=== PATIENT | female | born 1955 | race Caucasian/White ===

== ENCOUNTER 2017-05-11 08:38 | Emergency (ER) | payer BC ==
[2017-05-11 09:27] VITALS: BP 136/108
--- NOTE | 2017-05-11 10:35 | UC ---
Eye Complaint HPI - HPI Summary HPI Summary: ONSET OF RIGHT EYE REDNESS, IRRITATION AND CLEAR DRAINAGE LAST NIGHT. 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 HAS HAD SEVERAL WEEKS OF URI SX. NO FEVER. NO VISUAL DISTURBANCE. NO NAUSEA, CHO OR FB SENSATION. NO PHOTOPHOBIA. - History of Current Complaint Chief Complaint: UCRespiratory Stated Complaint: PINK EYE/COLD SYMPTOMS Time Seen by Provider: 05/11/17 10:11 Hx Obtained From: Patient Onset/Duration: Gradual Onset, Lasting Days, Still Present Timing: Constant Severity Initially: Moderate Severity Currently: Moderate Pain Intensity: 0 Pain Scale Used: 0-10 Numeric Location of Injury: Conjunctiva Aggravating Factor(s): Nothing Alleviating Factor(s): Nothing Associated Signs And Symptoms: Positive: Drainage (Clear). Negative: Photophobia, Vision Impairment Bilateral, Vision Impairment Right, Vision Impairment Left, Fever, Swelling - Allergies/Home Medications Allergies/Adverse Reactions: Allergies Allergy/AdvReac Type Severity Reaction Status Date / Time No Known Allergies Allergy Verified 05/11/17 09:21 PMH/Surg Hx/FS Hx/Imm Hx Previously Healthy: Yes - Surgical History Surgical History: Yes Surgery Procedure, Year, and Place: tonsillectomy. R arm surgery/ rotator cuff / collapsed lung - Family History Known Family History: Positive: Cardiac Disease - Social History Alcohol Use: Rare Alcohol Amount: 3-4 PER MONTH Substance Use Type: None Smoking Status (MU): Never Smoked Tobacco Have You Smoked in the Last Year: No - Immunization History Most Recent Influenza Vaccination: not this season Review of Systems Constitutional: Negative Eyes: Drainage, Eye Redness ENT: Nasal Discharge Respiratory: Cough Cardiovascular: Negative Gastrointestinal: Negative All Other Systems Reviewed And Are Negative: Yes Physical Exam Triage Information Reviewed: Yes Appearance: Well-Appearing, No Pain Distress, Well-Nourished Vital Signs: Initial Vital Signs Temp 98.7 F 05/11/17 09:22 Pulse 91 05/11/17 09:22 Resp 16 05/11/17 09:22 BP 136/108 05/11/17 09:22 Pulse Ox 100 05/11/17 09:22 Vital Signs Reviewed: Yes Eyes: Positive: Conjunctiva Inflamed, Other: - PERRL, EOMI. Negative: Discharge ENT: Positive: Hearing grossly normal, Pharynx normal, TMs normal Neck: Positive: Supple, Nontender, No Lymphadenopathy Respiratory Exam: Normal Cardiovascular Exam: Normal Abdomen Description: Positive: Soft Musculoskeletal: Positive: No Edema Neurological: Positive: Alert Psychological: Positive: Age Appropriate Behavior Skin: Negative: rashes Eye Complaint Course/Dx - Differential Dx/Diagnosis Provider Diagnoses: 1. RIGHT EYE CONJUNCTIVITIS. 2. ACUTE URI Discharge - Discharge Plan Condition: Stable Disposition: HOME Prescriptions: Amoxicillin PO (*) [Amoxicillin 500 MG CAP*] 1,000 mg PO Q12H #28 cap Ciprofloxacin 0.3% OPTH.NADIRA* [Cipro 0.3% Opth*] 1 drop RIGHT EYE Q4H #1 btl Patient Education Materials: Upper Respiratory Infection (ED), Conjunctivitis ( ED) Referrals: No Primary Care Phys,NOPCP [Primary Care Provider] - Additional Instructions: CALL THE NUMBER BELOW FOR ASSISTANCE IN ESTABLISHING WITH A PCP An additional resource available to assist in finding the appropriate physician for your health care needs is [facility] ([facility]). You may contact them by calling [phone].
== END 2017-05-11 10:40 | disposition home or self-care (01) ==
LOC: UCCORT 08:38
DX: H10.31 Unspecified acute conjunctivitis, right eye (principal); J06.9 Acute upper respiratory infection, unspecified; Z90.89 Acquired absence of other organs
CPT/HCPCS: 99212; G0463

== ENCOUNTER 2019-04-10 09:26 | Emergency (ER) | payer BC ==
[2019-04-10 09:47] VITALS: BP 155/86
--- NOTE | 2019-04-10 09:57 | UC ---
Eye Complaint HPI - HPI Summary HPI Summary: Patient is a 64-year-old female presenting with left eye irritation and discharge times one day. She also notes a sore under her nose that appeared last night. Denies drainage from the sore but notes crusting. Denies itching of eye or sore. Denies changes in vision and photophobia. Denies contact lens use. Denies URI symptoms. Denies environmental allergies. - History of Current Complaint Chief Complaint: UCEye Stated Complaint: EYE COMPLAINT Hx Obtained From: Patient Onset/Duration: Sudden Onset Pain Intensity: 0 - Allergies/Home Medications Allergies/Adverse Reactions: Allergies Allergy/AdvReac Type Severity Reaction Status Date / Time No Known Allergies Allergy Verified 04/10/19 09:47 PMH/Surg Hx/FS Hx/Imm Hx Previously Healthy: Yes - Surgical History Surgical History: Yes Surgery Procedure, Year, and Place: tonsillectomy. R arm surgery/ rotator cuff / collapsed lung - Family History Known Family History: Positive: Cardiac Disease - Social History Alcohol Use: Rare Alcohol Amount: 3-4 PER MONTH Substance Use Type: None Smoking Status (MU): Never Smoked Tobacco Have You Smoked in the Last Year: No - Immunization History Most Recent Influenza Vaccination: not this season Review of Systems All Other Systems Reviewed And Are Negative: Yes Constitutional: Positive: Negative Skin: Positive: Other - sore under nose Eyes: Positive: Drainage, Eye Redness. Negative: Blurred Vision, Diplopia, Photophobia ENT: Negative: Sore Throat, Ear Ache, Nasal Discharge, Sinus Congestion, Sinus Pain/Tenderness Respiratory: Positive: Negative Cardiovascular: Positive: Negative Gastrointestinal: Positive: Negative Genitourinary: Positive: Negative Neurological: Positive: Negative Physical Exam Triage Information Reviewed: Yes Appearance: Well-Appearing, No Pain Distress, Well-Nourished Vital Signs: Initial Vital Signs Temp 98.4 F 04/10/19 09:45 Pulse 72 04/10/19 09:45 Resp 16 04/10/19 09:45 BP 155/86 04/10/19 09:45 Pulse Ox 100 04/10/19 09:45 Vital Signs Reviewed: Yes Eyes: Positive: Conjunctiva Inflamed, Discharge - Crusting noted of upper eyelid of the left eye. ENT Exam: Normal ENT: Positive: Hearing grossly normal, Pharynx normal, TMs normal, Uvula midline. Negative: Nasal congestion, Nasal drainage, TM bulging, TM dull, TM red Neck exam: Normal Neck: Positive: Supple Respiratory Exam: Normal Respiratory: Positive: Lungs clear, Normal breath sounds, No respiratory distress Cardiovascular Exam: Normal Cardiovascular: Positive: RRR Neurological: Positive: Alert Psychological: Positive: Age Appropriate Behavior Skin: Positive: Other - Small honey crusted lesion noted beneath right nare Eye Complaint Course/Dx - Course Course Of Treatment: Instructed the patient to use antibiotic eyedrops and ointment for the treatment of her bacterial conjunctivitis and impetigo. Instructed the patient follow up with her PCP or the [facility] if symptoms persist. Patient voiced understanding and agreed to treatment plan. - Differential Dx/Diagnosis Provider Diagnosis: Bacterial conjunctivitis of both eyes, Impetigo Discharge ED - Sign-Out/Discharge Documenting (check all that apply): Patient Departure All imaging exams completed and their final reports reviewed: No Studies - Discharge Plan Condition: Stable Disposition: HOME Prescriptions: Mupirocin 2% OINT* [Bactroban 2 % Oint*] 1 applic TOPICAL BID 7 Days #1 tube Polymyx/Trimethoprim OPTH* [Polytrim OPHTH*] 1 drop BOTH EYES Q8H #1 btl Patient Education Materials: Impetigo (ED), Conjunctivitis (ED) Referrals: [facility] [Outside] - If Needed [facility] [Outside] - If Needed Additional Instructions: As discussed, use the antibiotic eyedrops and ointment as prescribed for treatment of your pinkeye and impetigo. Wash your hands often and avoid contact with others. Follow-up with your PCP or the [facility] or physician referral as listed below further evaluation if symptoms persist. - Billing Disposition and Condition Condition: STABLE Disposition: Home - Attestation Statements Provider Attestation: I was available for consult. This patient was seen by the ALBARO. The patient was not presented to, seen by, or examined by me. -Bonnie
== END 2019-04-10 10:13 | disposition home or self-care (01) ==
LOC: UCCORT 09:26
DX: H10.9 Unspecified conjunctivitis (principal); L01.00 Impetigo, unspecified; B96.89 Other specified bacterial agents as the cause of diseases classified elsewhere
CPT/HCPCS: 99212; G0463